=== PATIENT | female | born 1980 | race Caucasian/White ===

== ENCOUNTER 2023-03-03 13:06 | Emergency (ER) | payer BC ==
[~2023-03-03] VITALS: Ht 157.5 cm; Wt 46.4 kg
[2023-03-03 13:31] LABS: BASOPHILS 0.2 % (0-2); EOSINOPHILS 0.2 % (0-6); HEMATOCRIT 45.9 % (35.0-50.0); HEMOGLOBIN 15.6 g/dL (12.0-18.0); LYMPHOCYTES 2.9 % (24-44); MCH 32.2 (27-36); MCHC 33.9 g/dl (30-36); MCV 94.9 fl (81-99); MONOCYTES 2.4 % (0-12); NEUTROPHILS 94.3 % (39-80); PLATELET COUNT 187 K/uL (140-440); RBC 4.83 M/ul (4.3-5.7); RDW 13.5 (10.5-15.0)
[2023-03-03 13:42] LABS: ALBUMIN 4.3 g/dL (3.4-5.0); ALBUMIN/GLOBULIN RATIO 1.43 (1.1-2.4); ANION GAP 12.7 (7-21); BILIRUBIN, TOTAL 0.5 ng/dL (0.2-1.0); BUN/CREATININE RATIO 16.88 (6.0-28.6); CALCIUM 8.7 mg/dL (8.5-10.1); CREATININE, SERUM 0.77 mg/dL (0.55-1.02); POTASSIUM 3.7 mmol/L (3.5-5.1); PROTEIN, TOTAL 7.3 g/dL (6.4-8.2)
[2023-03-03] MEDS ORDERED: ONDANSETRON ODT4 MG PO (14:47)
[2023-03-03 15:10] VITALS: BP 114/68
== END 2023-03-03 15:10 | disposition home or self-care (01) ==
LOC: ED 13:06
PROVIDERS: Student in an Organized Health Care Education/Training Program
DX: R11.2 Nausea with vomiting, unspecified (principal)
CPT/HCPCS: 36415; 80053; 83690; 84703; 85025; 96361; 96374; 99284-25; J2405; J7030